=== PATIENT | male | born 1960 | race Caucasian/White ===

== ENCOUNTER 2020-12-09 09:31 | Emergency (ER) | payer MEDICAID ==
[~2020-12-09] VITALS: Ht 172.7 cm; Wt 86.2 kg
--- NOTE | 2020-12-09 09:47 | NUR ---
TO ER BED 1, C/O LT MIDDLE FINGER CRUSHED INJURY, "CAUGHT BETWEEN PARTITION DOOR", [id number], SEEN BY
--- NOTE | 2020-12-09 09:54 | NUR ---
EMT AT BEDSIDE
--- NOTE | 2020-12-09 10:06 | NUR ---
XRAY AT BEDSIDE
--- NOTE | 2020-12-09 10:42 | NUR ---
FINGER SPLINT APPLIED, TOLERATED WELL
[2020-12-09 10:47] VITALS: BP 110/68
== END 2020-12-09 10:48 | disposition home or self-care (01) ==
LOC: ER 09:43
DX: S67.193A Crushing injury of left middle finger, initial encounter (principal); S62.633A Displaced fracture of distal phalanx of left middle finger, initial encounter for closed fracture; I10 Essential (primary) hypertension; Z90.89 Acquired absence of other organs; Z98.890 Other specified postprocedural states; Z88.1 Allergy status to other antibiotic agents; W23.0XXA Caught, crushed, jammed, or pinched between moving objects, initial encounter; Y93.89 Activity, other specified; Y92.89 Other specified places as the place of occurrence of the external cause; Y99.8 Other external cause status
CPT/HCPCS: 29130; 73140; 99283; A6403